=== PATIENT | female | born 1985 | race Caucasian/White ===

== ENCOUNTER 2018-09-26 18:47 | Emergency (ER) | payer OTHER ==
[2018-09-26 19:40] VITALS: TEMP 99.7
[2018-09-26 21:22] VITALS: BP 113/67; PULSE 78; RESP 18
[2018-09-26] MEDS ORDERED: KETOROLAC 30 MG/ML 1 ML VIAL IM STA (21:46)
[2018-09-26] MEDS ORDERED: Acetaminophen-Codeine 300-30mg TAB PO STA (21:47)
--- NOTE | 2018-09-26 21:49 | ED ---
ENT HPI - General Chief complaint: Dental/Oral Stated complaint: abscess in mouth Time Seen by Provider: 09/26/18 20:14 Source: family Mode of arrival: ambulatory Limitations: no limitations - History of Present Illness Initial comments: Patient is a 33-year-old female presenting to emergency department with an abscess at tooth #11. Patient reports she developed pain 2 days ago in the same location and noticed him as growing over the past 2 days. Patient reports increased severity of the pain. Patient reports not see a dentist because she did not have insurance. Patient denies any pain radiating along the left side of her face. Patient denies lymphadenopathy or limited range of motion of the neck. Patient denies fever, headache, nausea, vomiting. Patient denies taking any medication to relieve the pain. - Related Data Home Medications Medication Instructions Recorded Confirmed [id number] 1 tab PO Q4HR PRN 04/08/17 04/08/17 [Excedrin] Previous Rx's Medication Instructions Recorded Ibuprofen [Motrin] 600 mg PO Q8HR PRN #30 tab 04/08/17 Ferrous Sulfate [Iron] 325 mg PO DAILY #30 tablet 04/09/17 Clindamycin HCl 300 mg PO Q6HR #40 cap 09/26/18 Ibuprofen [Motrin] 600 mg PO Q8HR PRN #30 tab 09/26/18 Allergies Allergy/AdvReac Type Severity Reaction Status Date / Time No Known Allergies Allergy Verified 09/26/18 19:40 Review of Systems ROS Statement: Those systems with pertinent positive or pertinent negative responses have been documented in the HPI. ROS Other: All systems not noted in ROS Statement are negative. Past Medical History Past Medical History: No Reported History History of Any Multi-Drug Resistant Organisms: None Reported Past Surgical History: Section Past Psychological History: Anxiety Smoking Status: Current every day smoker Past Alcohol Use History: None Reported Past Drug Use History: Marijuana General Exam Limitations: no limitations General appearance: alert, in no apparent distress Head exam: Present: atraumatic, normocephalic, normal inspection Eye exam: Present: normal appearance, PERRL, EOMI Pupils: Present: normal accommodation ENT exam: Present: normal oropharynx (2 cm x 1 cm abscess at tooth 10 with fluctuance.), mucous membranes moist, TM's normal bilaterally Neck exam: Present: normal inspection, full ROM Respiratory exam: Present: normal lung sounds bilaterally Cardiovascular Exam: Present: regular rate, normal rhythm, normal heart sounds GI/Abdominal exam: Present: soft Extremities exam: Present: normal inspection, full ROM Back exam: Present: normal inspection. Absent: CVA tenderness (R), CVA tenderness (L) Neurological exam: Present: alert, oriented X3 Psychiatric exam: Present: normal affect, normal mood Skin exam: Present: warm, intact, normal color Course Vital Signs 09/26/18 09/26/18 19:38 21:21 Temperature 99.7 F H Pulse Rate 111 H 78 Respiratory 16 18 Rate Blood Pressure 102/63 113/67 O2 Sat by Pulse 98 97 Oximetry Procedures - Incision & Drainage Consent Obtained: verbal consent Indication: Dental abscess Site: other (Vital) Size (cm): 2 Sterile Field Used?: No Needle Aspiration Performed?: Yes I&D Drainage Obtained: Pus, Blood Culture Obtained?: No Patient Tolerated Procedure: well Medical Decision Making - Medical Decision Making Patient is a 33-year-old female presents emergency Department with a dental left is. I was able to drain the abscess with pus and blood coming out. Patient will be discharged with a 10 day course of clindamycin. Patient will be discharged with ibuprofen for pain control. Patient advised to return to emergency department if symptoms worsen. After drainage patient reports feeling much better. Patient advised to follow-up with a dentist. Case discussed with physician. Disposition Clinical Impression: Dental abscess Disposition: HOME SELF-CARE Condition: Stable Instructions (If sedation given, give patient instructions): Dental Abscess (ED) Is patient prescribed a controlled substance at d/c from ED?: No Referrals: None,Stated [Primary Care Provider] - 1-2 days Time of Disposition: 21:48
== END 2018-09-26 21:57 | disposition home or self-care (01) ==
LOC: EC 18:47
DX: K04.7 Periapical abscess without sinus (principal); F17.200 Nicotine dependence, unspecified, uncomplicated
CPT/HCPCS: 41800; 99282

== ENCOUNTER 2019-02-11 08:12 | Emergency (ER) | payer OTHER ==
[2019-02-11 08:17] VITALS: TEMP 97.5
[2019-02-11] MEDS ORDERED: KETOROLAC 30 MG/ML 1 ML VIAL IVP STA (08:36)
--- NOTE | 2019-02-11 08:59 | ED ---
Chest Pain HPI - General Chief Complaint: Chest Pain Stated Complaint: chest pain/arm numbness Time Seen by Provider: 02/11/19 08:22 Source: patient, RN notes reviewed Mode of arrival: ambulatory Limitations: no limitations - History of Present Illness Initial Comments: This is a 33-year-old female who states she was at work this morning when she started developing some sharp left-sided chest pain associated with some lightheadedness and dizziness. She states the pain was sharp 7/10 in severity it does go from her Center left chest down her left arm. He states at rest is 45/10. She states he gets worse with deep breathing she denies any recent fevers chills nausea vomiting sweats cough or other symptoms. She does admit to being a smoker approximately one half pack per day. She states she did not smoke at today. She has no other modifying factors that she is aware of. There is a family history of hypertension. MD Complaint: chest pain - Related Data Home Medications Medication Instructions Recorded Confirmed [id number] 2 tab PO Q4HR PRN 02/11/19 02/11/19 [Excedrin] Previous Rx's Medication Instructions Recorded Ibuprofen [Motrin] 600 mg PO Q6HR PRN #20 tab 02/11/19 Allergies Allergy/AdvReac Type Severity Reaction Status Date / Time No Known Allergies Allergy Verified 02/11/19 09:18 Review of Systems ROS Statement: Those systems with pertinent positive or pertinent negative responses have been documented in the HPI. ROS Other: All systems not noted in ROS Statement are negative. EKG Findings - EKG Results: EKG: interpreted by ERMD, WNL, sinus rhythm, normal axis, normal QRS, normal ST/T, no acute changes (Normal sinus rhythm a 79. Interval 140 QRS duration 92 QT since QTC 396/[address]-T wave changes) Past Medical History Past Medical History: No Reported History History of Any Multi-Drug Resistant Organisms: None Reported Past Surgical History: Section Additional Past Surgical History / Comment(s): c section x 3 Past Psychological History: Anxiety Smoking Status: Current every day smoker Past Alcohol Use History: None Reported Past Drug Use History: Marijuana General Exam - General Exam Comments Initial Comments: This is a well-developed asthenic appearing female who is awake alert oriented 3 Limitations: no limitations General appearance: alert, anxious Head exam: Present: atraumatic, normocephalic, normal inspection Eye exam: Present: normal appearance, PERRL, EOMI. Absent: scleral icterus, conjunctival injection, periorbital swelling ENT exam: Present: normal exam, mucous membranes moist Neck exam: Present: normal inspection, full ROM, other (No stridor JVD or bruits). Absent: tenderness, meningismus, lymphadenopathy Respiratory exam: Present: normal lung sounds bilaterally, chest wall tenderness (Reproducible tenderness palpation along the left costochondral margin also some left trapezius tenderness. Palpation does reproduce the patient's pain). Absent: respiratory distress, wheezes, rales, rhonchi, stridor Cardiovascular Exam: Present: regular rate, normal rhythm, normal heart sounds. Absent: systolic murmur, diastolic murmur, rubs, gallop, clicks GI/Abdominal exam: Present: soft, normal bowel sounds. Absent: distended, tenderness, guarding, rebound, rigid Extremities exam: Present: normal inspection, full ROM, normal capillary refill. Absent: tenderness, pedal edema, joint swelling, calf tenderness Back exam: Present: normal inspection Neurological exam: Present: alert, oriented X3, CN II-XII intact Psychiatric exam: Present: normal affect, normal mood Skin exam: Present: warm, dry, intact, normal color. Absent: rash Course Vital Signs 02/11/19 02/11/19 02/11/19 08:14 08:25 09:00 Temperature 97.5 F L Pulse Rate 89 65 Pulse Rate [ 65 Mold Parter ] Respiratory 18 16 Rate Blood Pressure 95/66 104/84 O2 Sat by Pulse 97 98 Oximetry - Reevaluation(s) Reevaluation #1: 02/11/19 10:52 Reevaluation patient 5 she does feel improved. Procedures - Smoking Cessation Time Spent Discussing Smoking Cessation w/Patient (Minutes): 3 Patient Acknowledges Need for Cessation: Yes Chest Pain MDM - MDM I did reevaluate the patient she is much improved after IV medication I did discuss the findings with her the presentation consistent with costochondritis the workup is thus far been essentially unremarkable. She will be discharged on appropriate medication she is a follow-up with her doctor and return when necessary we did discuss smoking cessation Disposition Clinical Impression: Chest wall syndrome, Costochondritis Disposition: HOME SELF-CARE Condition: Good Instructions (If sedation given, give patient instructions): Costochondritis (ED) Additional Instructions: Prescription is E-scibed to your preferred pharmacy Prescriptions: Ibuprofen [Motrin] 600 mg PO Q6HR PRN #20 tab PRN Reason: Pain Is patient prescribed a controlled substance at d/c from ED?: No Referrals: None,Stated [Primary Care Provider] - 1-2 days
--- NOTE | 2019-02-11 09:10 | XR ---
EXAMINATION TYPE: XR chest 2V DATE OF EXAM: 02/11/2019 COMPARISON: Chest x-ray CTA chest April 08, 2017. HISTORY: Chest pain. TECHNIQUE: Frontal and lateral views of the chest are obtained. FINDINGS: Overlying EKG leads are seen. There is no focal air space opacity, pleural effusion, or pneumothorax seen. The cardiac silhouette size is within normal limits. The osseous structures are intact. IMPRESSION: No acute process. No significant change from prior.
[2019-02-11 09:17] LABS: Basophils % (A) 1 %; Eosinophils # (A) 0.1 k/uL (0-0.7); Eosinophils % (A) 2 %; HCT 38.5 % (34.0-46.0); HGB 12.4 gm/dL (11.4-16.0); Lymphocytes % (A) 31 %; MCH 27.8 pg (25.0-35.0); MCHC 32.3 g/dL (31.0-37.0); MCV 85.9 fL (80.0-100.0); Mean Platelet Volume 6.3; Monocytes # (A) 0.4 k/uL (0-1.0); Monocytes % (A) 6 %; Neutrophils # (A) 3.7 k/uL (1.3-7.7); Neutrophils % (A) 58 %; Platelet Count 336 k/uL (150-450); RBC 4.48 m/uL (3.80-5.40); WBC 6.3 k/uL (3.8-10.6)
[2019-02-11 09:21] LABS: ALT 17 U/L (9-52); AST 23 U/L (14-36); African American GFR (CKD) >90 (>60 ml/min/1.73 sqM); Albumin 4.3 g/dL (3.5-5.0); Alkaline Phosphatase 45 U/L (38-126); Anion Gap 9 mmol/L; Blood Urea Nitrogen 9 mg/dL (7-17); Calcium 9.7 mg/dL (8.4-10.2); Carbon Dioxide 22 mmol/L (22-30); Chloride 108 mmol/L (98-107); Creatine Kinase 91 U/L (30-135); Glucose 121 mg/dL (74-99); Magnesium 1.9 mg/dL (1.6-2.3); Potassium 3.8 mmol/L (3.5-5.1); Sodium 139 mmol/L (137-145); Total Bilirubin 0.5 mg/dL (0.2-1.3); Total Protein 7.1 g/dL (6.3-8.2)
[2019-02-11 09:27] LABS: D-Dimer 0.23 mg/L FEU (<0.60); Partial Thromboplastin Time 23.6 sec (22.0-30.0); Prothrombin Time 10.4 sec (9.0-12.0)
[2019-02-11 10:14] LABS: C Reactive Protein <5.0 mg/L (<10.0)
[2019-02-11 11:11] VITALS: BP 110/80; PULSE 80; RESP 16
== END 2019-02-11 10:59 | disposition home or self-care (01) ==
LOC: EC 08:12
DX: M94.0 Chondrocostal junction syndrome [Tietze] (principal); Z71.6 Tobacco abuse counseling; F17.210 Nicotine dependence, cigarettes, uncomplicated
CPT/HCPCS: 36415; 93005; 85379; 83880; 80053; 82550; 83690; 83735; 84484; 85025; 85610; 85730; 86140; 71046; 99285; 96374; J1885

== ENCOUNTER 2019-04-20 19:12 | Emergency (ER) | payer OTHER ==
[2019-04-20 19:27] VITALS: BP 119/93; PULSE 113; RESP 20; TEMP 97.4
[2019-04-20] MEDS ORDERED: LORazepam 2 MG/ML INJ IV STA (19:38)
[2019-04-20] MEDS ORDERED: SODIUM CHLORIDE 0.9% 1,000 ML IV STA (19:38)
[2019-04-20 20:04] LABS: Basophils % (A) 0 %; Eosinophils # (A) 0.1 k/uL (0-0.7); Eosinophils % (A) 1 %; HGB 11.6 gm/dL (11.4-16.0); Lymphocytes # (A) 1.6 k/uL (1.0-4.8); Lymphocytes % (A) 17 %; MCH 27.1 pg (25.0-35.0); MCHC 32.2 g/dL (31.0-37.0); MCV 84.4 fL (80.0-100.0); Mean Platelet Volume 7.6; Monocytes # (A) 0.6 k/uL (0-1.0); Monocytes % (A) 6 %; Neutrophils # (A) 7.2 k/uL (1.3-7.7); Neutrophils % (A) 74 %; Platelet Count 386 k/uL (150-450); RBC 4.26 m/uL (3.80-5.40); RDW 14.3 % (11.5-15.5); WBC 9.7 k/uL (3.8-10.6)
[2019-04-20 20:13] LABS: ALT 14 U/L (4-34); AST 25 U/L (14-36); African American GFR (CKD) >90 (>60 ml/min/1.73 sqM); Albumin 4.3 g/dL (3.5-5.0); Alkaline Phosphatase 64 U/L (38-126); Anion Gap 8 mmol/L; Blood Urea Nitrogen 13 mg/dL (7-17); Calcium 9.2 mg/dL (8.4-10.2); Carbon Dioxide 22 mmol/L (22-30); Chloride 110 mmol/L (98-107); Glucose 133 mg/dL (74-99); Non-African American GFR(CKD) >90 (>60 ml/min/1.73 sqM); Potassium 4.3 mmol/L (3.5-5.1); Sodium 140 mmol/L (137-145); Total Bilirubin 0.4 mg/dL (0.2-1.3); Total Protein 7.1 g/dL (6.3-8.2)
--- NOTE | 2019-04-20 20:17 | ED ---
SOB HPI - General Chief Complaint: Shortness of Breath Stated Complaint: Diff Breathing Source: patient Mode of arrival: ambulatory Limitations: no limitations - History of Present Illness Initial Comments: The patient is a 34 her old female with past medical history of methamphetamine abuse presents emergency room with reported shortness of breath. Patient states that earlier today she did relapse after 2 years and used methamphetamines at home. She then had a panic attack because she was very upset with herself. She was supposed to go to work and states that she had a run to the bus stop. It did make her short of breath. She then realized that she didn't have her phone and ran back home to call her work to see that she was given be late. She then started crying and having palpitations. She used her friend's inhaler without relief in her symptoms. EMS was then called for shortness of breath. She admits to current palpitations. States that she has improvement in her shortness of breath. No fevers or chills. Denies cough or hemoptysis. No chest pain. Does admit to chest tightness. No history of asthma or underlying lung conditions. No history of cardiac disease. Denies any lower extremity swelling. No history DVT or PE. Denies using any other illicit substances. No concern for . Denied any abdominal pain. No changes in her bowel or bladder habits. There are no alleviating, laughing factors - Related Data Home Medications Medication Instructions Recorded Confirmed [id number] 2 tab PO Q4HR PRN 02/11/19 02/11/19 [Excedrin] Previous Rx's Medication Instructions Recorded Ibuprofen [Motrin] 600 mg PO Q6HR PRN #20 tab 02/11/19 Allergies Allergy/AdvReac Type Severity Reaction Status Date / Time No Known Allergies Allergy Verified 02/11/19 09:18 Review of Systems ROS Statement: Those systems with pertinent positive or pertinent negative responses have been documented in the HPI. ROS Other: All systems not noted in ROS Statement are negative. Past Medical History Past Medical History: No Reported History History of Any Multi-Drug Resistant Organisms: None Reported Past Surgical History: Section Additional Past Surgical History / Comment(s): c section x 3 Past Psychological History: Anxiety Smoking Status: Current every day smoker Past Alcohol Use History: None Reported Past Drug Use History: Marijuana General Exam Limitations: no limitations Course Vital Signs 04/20/19 19:20 Temperature 97.4 F L Pulse Rate 113 H Respiratory 20 Rate Blood Pressure 119/93 O2 Sat by Pulse 100 Oximetry Medical Decision Making - Medical Decision Making Upon arrival the patient was placed into room 19. Peripheral IV had been established by EMS. I did recommend providing the patient something for anxiety for which she did agree. 1 mg of Ativan was ordered. I did recommend laboratory studies and a chest x-ray. I told lead EKG was performed. Patient did agree to the treatment plan. Laboratory studies demonstrated a normal CBC and CMP. Chest x-ray demonstrates no acute findings. I did request a urine sample however the patient did not provide one. She then states that she does not want the Ativan and she wants to leave immediately. As I do not have complete lab studies on the patient's I stated that she would be leaving AGAINST MEDICAL ADVICE. She is of sound mind and capable of making her own decisions. No active suicidal homicidal ideations or hallucinations. The patient agreed to leaving AMA and accepting the risks of permanent disability and even . I asked to return to the emergency room for any new or worsening symptoms - Lab Data Result diagrams: 04/20/19 19:47 04/20/19 19:47 Lab Results 04/20/19 04/20/19 Range/Units 19:47 19:47 WBC 9.7 (3.8-10.6) k/uL RBC 4.26 (3.80-5.40) m/uL Hgb 11.6 (11.4-16.0) gm/dL Hct 36.0 (34.0-46.0) % MCV 84.4 (80.0-100.0) fL MCH 27.1 (25.0-35.0) pg MCHC 32.2 (31.0-37.0) g/dL RDW 14.3 (11.5-15.5) % Plt Count 386 (150-450) k/uL Neutrophils % 74 % Lymphocytes % 17 % Monocytes % 6 % Eosinophils % 1 % Basophils % 0 % Neutrophils # 7.2 (1.3-7.7) k/uL Lymphocytes # 1.6 (1.0-4.8) k/uL Monocytes # 0.6 (0-1.0) k/uL Eosinophils # 0.1 (0-0.7) k/uL Basophils # 0.0 (0-0.2) k/uL Sodium 140 (137-145) mmol/L Potassium 4.3 (3.5-5.1) mmol/L Chloride 110 H (98-107) mmol/L Carbon Dioxide 22 (22-30) mmol/L Anion Gap 8 mmol/L BUN 13 (7-17) mg/dL Creatinine 0.52 (0.52-1.04) mg/dL Est GFR (CKD-EPI)AfAm >90 (>60 ml/min/1.73 sqM) Est GFR (CKD-EPI)NonAf >90 (>60 ml/min/1.73 sqM) Glucose 133 H (74-99) mg/dL Calcium 9.2 (8.4-10.2) mg/dL Total Bilirubin 0.4 (0.2-1.3) mg/dL AST 25 (14-36) U/L ALT 14 (4-34) U/L Alkaline Phosphatase 64 (38-126) U/L Total Protein 7.1 (6.3-8.2) g/dL Albumin 4.3 (3.5-5.0) g/dL - EKG Data EKG Comments: EKG demonstrates a normal sinus rhythm with a ventricular rate of 94. DE interval 134. QRS E4. QTC of 457. There are peaked T waves in leads V3. No acute ST segment elevations or depressions concerning for ischemic changes Disposition Clinical Impression: Shortness of breath, Methamphetamine abuse Disposition: Left Against Medical Advice Condition: Serious Instructions (If sedation given, give patient instructions): Heart Palpitations (ED) Is patient prescribed a controlled substance at d/c from ED?: No Referrals: None,Stated [Primary Care Provider] - 1-2 days Time of Disposition: 20:17
--- NOTE | 2019-04-20 20:26 | XR ---
EXAMINATION TYPE: XR chest 2V DATE OF EXAM: 04/20/2019 COMPARISON: 02/11/2019 HISTORY: Difficulty breathing TECHNIQUE: 2 views FINDINGS: Heart and mediastinum are normal. Lungs are clear. Diaphragm is normal. Bony thorax appears normal. IMPRESSION: Normal chest. No change.
== END 2019-04-20 20:27 | disposition left against medical advice (07) ==
LOC: EC 19:12
DX: F15.10 Other stimulant abuse, uncomplicated (principal); R06.02 Shortness of breath; Z53.20 Procedure and treatment not carried out because of patient's decision for unspecified reasons; F17.200 Nicotine dependence, unspecified, uncomplicated
CPT/HCPCS: 36415; 71046; 80053; 85025; 93005; 99285

== ENCOUNTER 2021-02-14 11:32 | Emergency (ER) | payer OTHER ==
[2021-02-14 11:39] VITALS: RESP 18
--- NOTE | 2021-02-14 11:52 | ED ---
Extremity Problem HPI - General Chief complaint: Extremity Problem,Nontraumatic Stated complaint: bump on left wrist Source: patient, RN notes reviewed Mode of arrival: ambulatory Limitations: no limitations - History of Present Illness Initial comments: Patient is a 35-year-old female presenting to ED for left wrist pain, growth on matthews side of wrist. Patient states that he bumped his been present for 4 days with no known traumatic event to cause. Patient reports discomfort/pain with range of motion against resistance. Patient states that pain is 3 out of 10 when not putting pressure on the affected hand. Patient states she has no history of cysts and has never had anything like this before. Patient denies any other symptoms states she is doing well signs affected wrist. - Related Data Home Medications Medication Instructions Recorded Confirmed [id number] 2 tab PO Q4HR PRN 02/11/19 02/11/19 [Excedrin] Previous Rx's Medication Instructions Recorded Ibuprofen [Motrin] 600 mg PO Q6HR PRN #20 tab 02/11/19 Allergies Allergy/AdvReac Type Severity Reaction Status Date / Time No Known Allergies Allergy Verified 02/11/19 09:18 Review of Systems ROS Statement: Those systems with pertinent positive or pertinent negative responses have been documented in the HPI. ROS Other: All systems not noted in ROS Statement are negative. Past Medical History Past Medical History: No Reported History History of Any Multi-Drug Resistant Organisms: None Reported Past Surgical History: Section Additional Past Surgical History / Comment(s): c section x 3 Past Psychological History: Anxiety Smoking Status: Current every day smoker Past Alcohol Use History: None Reported Past Drug Use History: Marijuana General Exam Limitations: no limitations General appearance: alert, in no apparent distress Respiratory exam: Present: normal lung sounds bilaterally. Absent: respiratory distress, wheezes, rales, rhonchi, stridor Cardiovascular Exam: Present: regular rate, normal rhythm, normal heart sounds. Absent: systolic murmur, diastolic murmur, rubs, gallop, clicks Left General: Present: normal inspection Shoulder Exam: Present: normal inspection Upper Arm exam: Present: normal inspection Elbow exam: Present: normal inspection Forearm Wrist exam: Present: normal inspection Hand Wrist exam: Present: tenderness, swelling, other (Growth/localized edema along the amtthews aspect) Neurological exam: Present: alert, oriented X3, CN II-XII intact Skin exam: Present: warm, dry, intact, normal color. Absent: rash Course Vital Signs 02/14/21 11:34 Temperature 98.2 F Pulse Rate 87 Respiratory 18 Rate Blood Pressure 126/77 O2 Sat by Pulse 98 Oximetry Disposition Clinical Impression: Ganglion cyst Disposition: HOME SELF-CARE Condition: Stable Instructions (If sedation given, give patient instructions): Ganglion Cysts (ED) Additional Instructions: Please return to the Emergency Department if symptoms worsen or any other concerns. Is patient prescribed a controlled substance at d/c from ED?: No Referrals: Mckay Awad DO [Primary Care Provider] - 1-2 days Lenny Thompson MD [STAFF PHYSICIAN] - 1-2 days Time of Disposition: 12:21
--- NOTE | 2021-02-14 12:14 | XR ---
EXAMINATION TYPE: XR wrist complete LT DATE OF EXAM: 02/14/2021 COMPARISON: NONE HISTORY: Pain TECHNIQUE: Four views submitted. FINDINGS: The osseous structures are intact. The joint spaces are preserved and there is no acute fracture or dislocation. IMPRESSION: 1. No definite acute fracture or dislocation if symptoms persist, follow-up study in 7 to 10 days wo uld be suggested
[2021-02-14 12:32] VITALS: BP 102/73; PULSE 78; TEMP 98.8
== END 2021-02-14 12:36 | disposition home or self-care (01) ==
LOC: EC 11:32
DX: M67.432 Ganglion, left wrist (principal); F41.9 Anxiety disorder, unspecified; F17.200 Nicotine dependence, unspecified, uncomplicated; F12.90 Cannabis use, unspecified, uncomplicated; Z79.82 Long term (current) use of aspirin
CPT/HCPCS: 99283

== ENCOUNTER → 2021-04-11 | Outpatient (CLI) | payer OTHER ==
--- NOTE | 2021-04-12 07:09 | US ---
EXAMINATION TYPE: US pelvic complete DATE OF EXAM: 04/11/2021 COMPARISON: NONE CLINICAL HISTORY: N80.0 Endometriosis of uterus. TECHNIQUE: Transabdominal (TA). Transabdominal sonographic images of the pelvis were acquired. Tra nsvaginal sonographic images were medically necessary to better assess the following anatomy: Date of LMP: 04-09-21 EXAM MEASUREMENTS: Uterus: 9.3 x 3.6 x 5.2 cm Endometrial Stripe: 0.7 cm Right Ovary: 3.5 x 2.6 x 3.1 cm Left Ovary: 2.5 x 1.9 x 2.5 cm 1. Uterus: Anteverted wnl 2. Endometrium: wnl 3. Right Ovary: wnl 4. Left Ovary: wnl 5. Bilateral Adnexa: wnl 6. Posterior cul-de-sac: moderate free fluid IMPRESSION: There is a moderate amount of free fluid within the pelvis correlate
== END | disposition home or self-care (01) ==
LOC: RADUSWWP 16:10
PROVIDERS: ATTEND Family Medicine
DX: N80.0 Endometriosis of uterus (principal)
CPT/HCPCS: 76856

== ENCOUNTER 2022-01-14 12:17 | Emergency (ER) | payer OTHER ==
[2022-01-14 12:41] VITALS: BP 114/77; PULSE 79; RESP 16; TEMP 97.9
--- NOTE | 2022-01-14 13:32 | XR ---
EXAMINATION TYPE: XR chest 2V DATE OF EXAM: 01/14/2022 COMPARISON: 04/20/2019 HISTORY: 36-year-old female syncope TECHNIQUE: PA and lateral views FINDINGS: The cardiomediastinal silhouette, aorta, and pulmonary vasculature are within normal limits. Lungs an d pleural spaces are clear. IMPRESSION: No acute cardiopulmonary process.
[2022-01-14 14:08] LABS: Basophils % (A) 0 %; Eosinophils # (A) 0.1 k/uL (0-0.7); Eosinophils % (A) 2 %; HCT 41.3 % (34.0-46.0); HGB 13.4 gm/dL (11.4-16.0); Lymphocytes # (A) 1.6 k/uL (1.0-4.8); Lymphocytes % (A) 28 %; MCH 29.8 pg (25.0-35.0); MCHC 32.6 g/dL (31.0-37.0); MCV 91.5 fL (80.0-100.0); Mean Platelet Volume 8.5; Monocytes # (A) 0.3 k/uL (0-1.0); Monocytes % (A) 5 %; Neutrophils # (A) 3.7 k/uL (1.3-7.7); Neutrophils % (A) 62 %; Platelet Count 289 k/uL (150-450); RBC 4.51 m/uL (3.80-5.40); RDW 14.3 % (11.5-15.5); WBC 5.9 k/uL (3.8-10.6)
[2022-01-14 14:22] LABS: INR 0.9 (<1.2); Partial Thromboplastin Time 22.2 sec (22.0-30.0)
[2022-01-14 14:35] LABS: ALT 15 U/L (4-34); AST 26 U/L (14-36); African American GFR (CKD) >90 (>60 ml/min/1.73 sqM); Albumin 3.8 g/dL (3.5-5.0); Alkaline Phosphatase 46 U/L (38-126); Anion Gap 9 mmol/L; Blood Urea Nitrogen 10 mg/dL (7-17); Calcium 8.7 mg/dL (8.4-10.2); Carbon Dioxide 22 mmol/L (22-30); Chloride 107 mmol/L (98-107); Glucose 94 mg/dL (74-99); Non-African American GFR(CKD) >90 (>60 ml/min/1.73 sqM); Potassium 4.3 mmol/L (3.5-5.1); Sodium 138 mmol/L (137-145); Total Bilirubin 0.1 mg/dL (0.2-1.3); Total Protein 5.8 g/dL (6.3-8.2)
== END 2022-01-14 14:25 | disposition left against medical advice (07) ==
LOC: EC 12:17
DX: Z53.21 Procedure and treatment not carried out due to patient leaving prior to being seen by health care provider (principal)
CPT/HCPCS: 36415; 71046; 80053; 84484; 85025; 85610; 85730; 86850; 86900; 86901; 93005; 99499